=== PATIENT | female | born 1960 | race Caucasian/White ===

== ENCOUNTER → 2021-10-31 | Outpatient (CLI) | payer MEDICARE ==
--- NOTE | 2021-10-31 11:47 | CT ---
EXAMINATION TYPE: CT abdomen pelvis w con DATE OF EXAM: 10/31/2021 COMPARISON: None available HISTORY: Diverticulitis, Hiatal Hernia CT DLP: 4297.2 mGycm Automated exposure control for dose reduction was used. TECHNIQUE: Helical acquisition of images was performed from the lung bases through the pelvis. CONTRAST: Performed with Oral Contrast and with IV Contrast, patient injected with 100 mL of Isovue 300. FINDINGS: Hiatal hernia containing the gastric fundus and the superior aspect of the gastric body. The hernial neck measures 4.6 x 3.6 cm. The gastroesophageal junction is seen superior to the hernial defect. No evidence of gastric obstruction with free flow of the ingested oral contrast down to the colon. Unrem arkable duodenum and small bowel. No gross colonic abnormality. Normal appendix. Bulky liver. Tiny cyst is seen along the anterior aspect of the intrahepatic IVC measuring 7 mm. No o ther definite hepatic focal lesion identified. Unremarkable gallbladder, spleen, adrenals and kidneys . Questionable mild fatty infiltration of the pancreas. Right inferior accessory renal vessels. Scatt ered mild atherosclerotic calcifications. Suspected perineal prolapse, please correlate clinically. Previous hysterectomy. Grossly unremarkable urinary bladder. No gross adnexal mass. No suspicious lym phadenopathy or sizable ascites. The heart is slightly displaced anteriorly by the hiatal hernia. Sma ll subsegmental chronic atelectasis along the left lateral aspect of the hiatal hernia, otherwise unr emarkable lung bases. Healing fracture of the anterior aspect of the left 10th rib. Degenerative changes of the lower thora cic and lumbar spine most evident at L4-5 level, slightly obscured by artifacts caused by the patient 's body habitus. IMPRESSION: Sizable hiatal hernia containing portion of the stomach as described above, for surgery consultation. Other incidental findings as detailed above.
--- NOTE | 2021-10-31 11:50 | FL ---
ESOPHOGRAM. HISTORY: Dysphagia Esophagram was performed per the air contrast technique. The patient swallowed barium and effervesce nt crystals without difficulty or delay. Esophageal peristalsis and motility appear to be within normal limits. There is no evidence for filling defect, mass or diverticulum. There is a moderate-sized paraesophageal hiatal hernia noted. Subsequently single contrast cervical esophagram was performed which fails demonstrate evidence for a spiration penetration or mass. IMPRESSION: There is a moderate-sized paraesophageal hiatal hernia noted.
== END | disposition home or self-care (01) ==
LOC: RADCTMAIN 08:47
PROVIDERS: ATTEND Surgery Plastic and Reconstructive Surgery
DX: K44.9 Diaphragmatic hernia without obstruction or gangrene (principal); I70.90 Unspecified atherosclerosis; Z90.710 Acquired absence of both cervix and uterus
CPT/HCPCS: 82565; 84520; 74220; 74177; 36415; Q9967 ×2